=== PATIENT | male | born 1960 | race Two or more races ===

== ENCOUNTER 2018-09-27 18:56 | Inpatient (IN) | payer MEDICAID ==
[~2018-09-27] VITALS: Ht 165.1 cm; Wt 76.3 kg
[2018-09-27] MEDS ORDERED: SODIUM CHLORIDE 0.9% 1,000 ML IV ONE (19:54)
[2018-09-27 20:28] LABS: BASOPHILS % 0.4 % (0.0-2.0); CHLORIDE 104 mEq/L (98-107); EOSINOPHILS % 6.7 % (0.0-5.0); LYMPHOCYTES % 31.8 % (20.0-50.0); MEAN CORPUSCULAR VOLUME 90.4 fL (80.0-94.0); MEAN PLATELET VOLUME 8.2 fl (7.4-10.4); MONOCYTES % 6.3 % (2.0-8.0); NEUTROPHILS % 54.8 % (40.0-76.0); PLATELET 277 x1000/uL (130-400); RED BLOOD CELL COUNT 3.87 mill/uL (4.7-6.1)
[2018-09-27 20:32] LABS: ETHANOL BLOOD < 10 mg/dL
[2018-09-27 20:35] LABS: LDL CHOLESTEROL 73 mg/dL (5-100)
[2018-09-27] MEDS ORDERED: ASPIRIN 325MG TABLET PO ONE (21:15)
[2018-09-27 22:56] LABS: CLARITY URINE CLEAR (CLEAR); COLOR URINE YELLOW (YELLOW); KETONES URINE NEGATIVE (NEGATIVE); LEUKOCYTE ESTERASE URINE NEGATIVE (NEGATIVE); NITRITE URINE NEGATIVE (NEGATIVE); OCCULT BLOOD URINE NEGATIVE (NEGATIVE); PROTEIN URINE NEGATIVE (NEGATIVE); SPECIFIC GRAVITY URINE 1.005 (1.005-1.030); UROBILINOGEN URINE 0.2 E.U./dL (0.2-1.0)
[2018-09-27 23:05] LABS: *AMPHETAMINES SCREEN URINE NEGATIVE (NEGATIVE); *BARBITURATES SCREEN URINE NEGATIVE (NEGATIVE); *BENZODIAZEPINES SCREEN URINE NEGATIVE (NEGATIVE); *COCAINE SCREEN URINE NEGATIVE (NEGATIVE); METHADONE URINE SCREEN NEGATIVE (NEGATIVE); OPIATES URINE SCREEN NEGATIVE (NEGATIVE)
[2018-09-27 23:06] LABS: CANNABINOID URINE SCREEN NEGATIVE (NEGATIVE); PHENCYCLIDINE URINE SCREEN NEGATIVE (NEGATIVE)
[2018-09-28 00:40] VITALS: BP 138/76
[2018-09-28] MEDS ORDERED: SPIR25TA MT (01:23)
[2018-09-28] MEDS ORDERED: GABA-531 MT (01:23)
[2018-09-28] MEDS ORDERED: MAGN400T29 MT (01:23)
[2018-09-28] MEDS ORDERED: LISI-186 MT (01:23)
[2018-09-28] MEDS ORDERED: CARV6.2548 MT (01:23)
[2018-09-28] MEDS ORDERED: ATOR80TA MT (01:23)
[2018-09-28] MEDS ORDERED: FERR325T6 MT (01:23)
[2018-09-28] MEDS ORDERED: ASCO500C15 PO (01:23)
[2018-09-28] MEDS ORDERED: FURO40TA5 MT (01:23)
[2018-09-28] MEDS ORDERED: GLUCO8 MT (01:23)
[2018-09-28] MEDS ORDERED: INSU100I26 SQ (01:23)
[2018-09-28] MEDS ORDERED: MEDICATION NOT ON FORMULARY EA (Ascorbic Acid (Vitamin C) 250 MG) PO SCH (02:00)
[2018-09-28] MEDS ORDERED: DEXTROSE 50% WATER 50ML SYRINGE IV PRN (02:15)
[2018-09-28 04:00] VITALS: BP 108/68
[2018-09-28] MEDS: BLOOD SUGAR DIAGNOSTIC STRIP TEST SCH ×4 (06:21→21:02)
[2018-09-28 06:32] LABS: HEMATOCRIT 29.5 % (42.0-52.0); HEMOGLOBIN 10.2 g/dL (14.0-18.0); MEAN CORPUSCULAR HEMOGLOBIN 31.2 pg (28.0-32.0); MEAN CORPUSCULAR VOLUME 90.3 fL (80.0-94.0); PLATELET 258 x1000/uL (130-400); RED BLOOD CELL COUNT 3.27 mill/uL (4.7-6.1); RED CELL DISTRIBUTION WIDTH 15.2 % (11.6-14.6)
[2018-09-28 07:15] LABS: CHLORIDE 111 mEq/L (98-107)
[2018-09-28 07:24] LABS: T4 FREE 1.21 ng/dL (0.76-1.46)
[2018-09-28] MEDS: INSULIN LISPRO 100 UNITS/ML SUBCUT SCH ×4 (07:50→21:01)
[2018-09-28 08:00] VITALS: BP 125/72
[2018-09-28] MEDS ORDERED: CARVEDILOL 6.25 MG TABLET PO SCH (09:00)
[2018-09-28] MEDS ORDERED: MEDICATION NOT ON FORMULARY EA (Atorvastatin Calcium (Lipitor) 1 TAB) MT SCH (09:00)
[2018-09-28] MEDS ORDERED: MEDICATION NOT ON FORMULARY EA (Ferrous Sulfate 1 TAB) MT SCH (09:00)
[2018-09-28] MEDS: SPIRONOLACTONE 25MG TABLET PO SCH ×2 (09:00→21:02)
[2018-09-28] MEDS ORDERED: MEDICATION NOT ON FORMULARY EA (Furosemide 1 TAB) MT SCH (09:00)
[2018-09-28] MEDS ORDERED: MEDICATION NOT ON FORMULARY EA (Lisinopril 1 TAB) MT SCH (09:00)
[2018-09-28] MEDS ORDERED: SPIRONOLACTONE MT SCH (09:00)
[2018-09-28] MEDS: FUROSEMIDE 40MG TABLET PO SCH (10:08)
[2018-09-28] MEDS: MAGNESIUM OXIDE 400MG TABLET PO SCH ×2 (10:08→19:44)
[2018-09-28] MEDS: FERROUS SULFATE 325MG TABLET PO SCH (10:08)
[2018-09-28] MEDS: ASCORBIC ACID 250 MG TABLET PO SCH (10:08)
[2018-09-28] MEDS: METFORMIN HCL 850MG TABLET PO SCH ×2 (10:09→19:44)
[2018-09-28] MEDS: ENOXAPARIN 40MG/0.4ML SYR SUBCUT SCH (10:12)
[2018-09-28 12:00] VITALS: BP 127/75
[2018-09-28 12:58] LABS: CREATINE KINASE MB FRACTION 2.9 ng/mL (0.5-3.6)
[2018-09-28] MEDS: LISINOPRIL 5MG TABLET PO SCH (13:19)
[2018-09-28] MEDS: ASPIRIN 81MG TABLET PO SCH (13:19)
[2018-09-28 16:00] VITALS: BP 120/70
[2018-09-28 20:00] VITALS: BP 109/64
[2018-09-28] MEDS ORDERED: MEDICATION NOT ON FORMULARY EA (Gabapentin 1 CAP) MT SCH (21:00)
[2018-09-28] MEDS ORDERED: GABAPENTIN 300MG CAPSULE PO SCH (21:00)
[2018-09-28] MEDS ORDERED: ATORVASTATIN CALCIUM 40MG TABLET PO SCH (21:00)
[2018-09-28] MEDS: CARVEDILOL 3.125 MG TABLET PO SCH (21:01)
[2018-09-28] MEDS: CLOPIDOGREL 75MG TABLET PO SCH (21:37)
[2018-09-29] VITALS: BP 112/70
[2018-09-29 04:00] VITALS: BP 113/60
[2018-09-29 06:14] LABS: HEMATOCRIT 29.9 % (42.0-52.0); HEMOGLOBIN 10.5 g/dL (14.0-18.0); MEAN CORPUSCULAR HEMOGLOBIN 31.5 pg (28.0-32.0); PLATELET 275 x1000/uL (130-400); RED BLOOD CELL COUNT 3.33 mill/uL (4.7-6.1); RED CELL DISTRIBUTION WIDTH 14.9 % (11.6-14.6)
[2018-09-29 06:26] LABS: CHLORIDE 106 mEq/L (98-107)
[2018-09-29 06:33] LABS: LDL CHOLESTEROL 68 mg/dL (5-100)
[2018-09-29 06:34] LABS: HDL CHOLESTEROL 26 mg/dL (40-59)
[2018-09-29] MEDS: BLOOD SUGAR DIAGNOSTIC STRIP TEST SCH ×3 (06:36→17:20)
[2018-09-29] MEDS: INSULIN LISPRO 100 UNITS/ML SUBCUT SCH ×3 (07:50→17:50)
[2018-09-29 08:00] VITALS: BP 102/75
[2018-09-29] MEDS: LISINOPRIL 5MG TABLET PO SCH (09:00)
[2018-09-29] MEDS: CARVEDILOL 3.125 MG TABLET PO SCH (09:00)
[2018-09-29] MEDS: SPIRONOLACTONE 25MG TABLET PO SCH (09:00)
[2018-09-29] MEDS: MAGNESIUM OXIDE 400MG TABLET PO SCH ×2 (09:29→18:31)
[2018-09-29] MEDS: FUROSEMIDE 40MG TABLET PO SCH (09:29)
[2018-09-29] MEDS: CLOPIDOGREL 75MG TABLET PO SCH (09:29)
[2018-09-29] MEDS: METFORMIN HCL 850MG TABLET PO SCH ×2 (09:29→18:30)
[2018-09-29] MEDS: ASPIRIN 81MG TABLET PO SCH (09:29)
[2018-09-29] MEDS: ASCORBIC ACID 250 MG TABLET PO SCH (09:29)
[2018-09-29] MEDS: FERROUS SULFATE 325MG TABLET PO SCH (09:29)
[2018-09-29] MEDS: ENOXAPARIN 40MG/0.4ML SYR SUBCUT SCH (09:34)
[2018-09-29 12:00] VITALS: BP 112/65
[2018-09-29 16:00] VITALS: BP 108/68
[2018-09-29 17:17] VITALS: BP 108/68
== END 2018-09-29 19:40 | disposition home or self-care (01) | DRG 45 ==
LOC: ER 18:56 → 6WST 22:59 → EDBEDREQTM 23:02 → EDBEDREQSVC 23:02 → EDBEDREQ 23:02 → ENRESERV 23:19
PROVIDERS: ADMIT Internal Medicine; ATTEND Internal Medicine
DX: I63.511 Cerebral infarction due to unspecified occlusion or stenosis of right middle cerebral artery (principal); I11.0 Hypertensive heart disease with heart failure; I50.22 Chronic systolic (congestive) heart failure; E11.65 Type 2 diabetes mellitus with hyperglycemia; I27.20 Pulmonary hypertension, unspecified; G90.8 Other disorders of autonomic nervous system; E86.0 Dehydration; I67.82 Cerebral ischemia; D64.9 Anemia, unspecified; E78.5 Hyperlipidemia, unspecified; I25.5 Ischemic cardiomyopathy; I45.4 Nonspecific intraventricular block; I25.10 Atherosclerotic heart disease of native coronary artery without angina pectoris; Z79.82 Long term (current) use of aspirin; Z79.899 Other long term (current) drug therapy; Z79.4 Long term (current) use of insulin; I25.2 Old myocardial infarction; I69.354 Hemiplegia and hemiparesis following cerebral infarction affecting left non-dominant side; I69.122 Dysarthria following nontraumatic intracerebral hemorrhage
CPT/HCPCS: 36415; 70551; 71045; 80048; 80061; 80305; 80320; 82550; 82553; 82962; 83036; 83721; 84439; 84443; 84484; 85027; 92610; 93005; 93306; 93880; 93970; 97162; 97165; 99285; J1650; J1815; J7030; G0480